=== PATIENT | female | born 1990 | race Caucasian/White ===

== ENCOUNTER 2017-01-11 01:29 | Emergency (ER) | payer BC ==
[2017-01-11 01:36] VITALS: RESP 16
--- NOTE | 2017-01-11 01:50 | EDPHY ---
H & P Stated Complaint: fell ~6' onto forehead; no LOC; intoxicated HPI/ROS: HPI CHIEF COMPLAINT: Alcohol intoxication, fall, head strike, positive LOC HISTORY OF PRESENT ILLNESS: This patient 26-year-old female, she presents emergency room by private vehicle after she states her and her friend were doing a dance move and she fell on her head. Positive LOC. She states she had 10 alcoholic beverages tonight and appears very intoxicated. Patient admits to being very drunk. She does complain of a frontal throbbing headache 6/10. She also complains of midline cervical spine pain. At triage she was placed in a cervical collar. She has no arm weakness numbness or tingling this. She is slurring her speech. She has a hematoma to her right forehead. No other injuries. Past Medical History: Denies medical history Past Surgical History: Denies surgical history Social History: Denies daily use of drugs tobacco or alcohol, was drinking tonight Family History: Noncontributory ROS REVIEW OF SYSTEMS: A comprehensive 10 point review of systems is otherwise negative aside from elements mentioned in the history of present illness. Exam Constitutional smells of alcohol, intoxicated, triage nursing summary reviewed , vital signs reviewed, awake/alert. Eyes normal conjunctivae and sclera, EOMI, PERRLA. HENT head/neck: In cervical collar midline cervical spine pain no step-offs or crepitus, head exam shows a hematoma right forehead, no laceration,, moist mucus membranes, no epistaxis, neck supple/ no meningismus, no raccoon eyes. Respiratory clear to auscultation bilaterally, normal breath sounds, no respiratory distress, no wheezing. Cardiovascular rate normal, regular rhythm, no murmur, no edema, distal pulses normal. Gastrointestinal soft, non-tender, no rebound, no guarding, normal bowel sounds, no distension, no pulsatile mass. Genitourinary no CVA tenderness. Musculoskeletal no midline vertebral tenderness, full range of motion, no calf swelling, no tenderness of extremities, no meningismus, good pulses, neurovascularly intact. Skin pink, warm, & dry, no rash, skin atraumatic. Neurologic awake, alert and oriented x 3, AAOx3, moves all 4 extremities equally, motor intact, sensory intact, CN II-XII intact, normal cerebellar, normal vision, slurring his speech Psychiatric normal mood/affect. Heme/Lymph/Immune no lymphadenopathy. Differential Diagnosis: Includes but is not limited to in a particular order acute alcohol intoxication, closed head injury, scalp hematoma, subdural, epidural, traumatic subarachnoid, skull fracture, cervical spine injury, cervical spine fracture Medical Decision Making: Plan for this patient breath alcohol, CT head, CT cervical spine, remain in cervical spine immobilization. Re-evaluation: 0224: This patient breath alcohol 219. CT scan of the head w/o The results of the study are negative for acute traumatic injury The study was read by Dr. Aranda I viewed the images myself on the PACS system. CT scan of the c Spine w/o. The results of the study are negative for acute traumatic injury The study was read by Dr. Aranda. I viewed the images myself on the PACS system. [id number]: Was able to re-evaluate the patient she is much more sober Now. She has no midline cervical spine pain on exam. I was able to to clear her cervical collar. I did give her return precautions she understands return emergency room she develops worsening headache, vomiting or she has any questions or concerns. She does have forehead hematoma most likely she has a closed head injury and concussion. And acute alcohol intoxication. Source: Patient - Personal History LMP (Females 10-55): IUD In Place - Medical/Surgical History Other PMH: intoxicated, but denies Constitutional: Initial Vital Signs Temperature (C) 36.6 C 01/11/17 01:32 Heart Rate 116 H 01/11/17 01:32 Respiratory Rate 16 01/11/17 01:32 Blood Pressure 130/96 H 01/11/17 01:32 O2 Sat (%) 97 01/11/17 01:32 O2 Delivery Mode Room Air Allergies/Adverse Reactions: No Known Allergies Allergy (Unverified 01/11/17 01:36) Home Medications: Medication Instructions Recorded NK [No Known Home Meds] 01/11/17 Departure - Departure Disposition: Home, Routine, Self-Care Clinical Impression: Hematoma Alcoholic intoxication Qualifiers: Complication of substance-induced condition: uncomplicated Qualified Code(s): F10.120 - Alcohol abuse with intoxication, uncomplicated Head injury Qualifiers: Encounter type: initial encounter Qualified Code(s): S09.90XA - Unspecified injury of head, initial encounter Condition: Good Instructions: Concussion (ED), Head Injury (ED), Alcohol Intoxication (ED) Additional Instructions: 1. Stay well-hydrated drink lots of fluids. 2. Return emergency room if you have worsening symptoms includes severe headache , vomiting or questions or concerns. Referrals: Patient,NotPresent [Primary Care Provider] - As per Instructions
[2017-01-11 03:59] VITALS: BP 101/65; PULSE 101; TEMP 98.2; O2SAT 96
== END 2017-01-11 03:58 | disposition home or self-care (01) ==
DX: S00.83XA Contusion of other part of head, initial encounter (principal); F10.120 Alcohol abuse with intoxication, uncomplicated; W51.XXXA Accidental striking against or bumped into by another person, initial encounter; Y93.89 Activity, other specified
CPT/HCPCS: L0172